=== PATIENT | male | born 1985 | race Two or more races ===

== ENCOUNTER 2019-12-01 14:49 | Emergency (ER) | payer MEDICAID ==
[~2019-12-01] VITALS: Ht 167.6 cm; Wt 98.0 kg
[2019-12-01 15:09] VITALS: BP 168/95
[2019-12-01] MEDS ORDERED: ACETAMINOPHEN 325MG TABLET PO ONE (15:45)
== END 2019-12-01 17:13 | disposition home or self-care (01) ==
LOC: ER 14:49
DX: S62.647A Nondisplaced fracture of proximal phalanx of left little finger, initial encounter for closed fracture (principal); W23.0XXA Caught, crushed, jammed, or pinched between moving objects, initial encounter; Y93.89 Activity, other specified; Y92.89 Other specified places as the place of occurrence of the external cause
CPT/HCPCS: 29130; 73130; 99283

== ENCOUNTER 2021-02-28 02:57 | Emergency (ER) | payer MEDICAID ==
[~2021-02-28] VITALS: Ht 165.1 cm; Wt 91.0 kg
[2021-02-28 03:03] VITALS: BP 127/94
== END 2021-02-28 03:55 | disposition left against medical advice (07) ==
LOC: ER 02:57
DX: Z53.21 Procedure and treatment not carried out due to patient leaving prior to being seen by health care provider (principal); R10.13 Epigastric pain
CPT/HCPCS: 93005